=== PATIENT | male | born 1960 | race American Indian/Alaskan Native ===

== ENCOUNTER 2021-09-07 09:55 | Emergency (ER) | payer SELFPAY ==
[2021-09-07 10:03] VITALS: BP 187/89
--- NOTE | 2021-09-07 10:21 | Event Note ---
ED Screening Note Date of service: 09/07/21 Time: 10:19 ED Screening Note: This pleasant 61-year-old male with past medical history of end-stage renal failure on dialysis Mondays and in [place]. He reports he recently flew here from [place] and was sitting upright for approximately 13 hours and has noticed some swelling in both of his legs since. He reports he was dialyzed fully 4 days ago on 09/03 as scheduled. He has access for dialysis in the right side of his chest. He does still make urine daily. He denies any other symptoms such as fever, chills, night sweats, headache, dizziness, or vision, chest pain, shortness of breath, nausea, vomiting, diarrhea, focal weakness or any other associated symptoms. This initial assessment/diagnostic orders/clinical plan/treatment(s) is/are subject to change based on patients health status, clinical progression and re-assessment by fellow clinical providers in the ED. Further treatment and workup at subsequent clinical providers discretion. Patient/guardian urged not to elope from the ED as their condition may be serious if not clinically assessed and managed. Initial orders include: labs, ekg, chest x-ray
--- NOTE | 2021-09-07 10:37 | Emergency Department Report ---
ED General Adult HPI - General Chief complaint: Weakness Stated complaint: FEELING TIRED AND FAINT Time Seen by Provider: 09/07/21 10:20 Source: patient Mode of arrival: Ambulatory Limitations: No Limitations - History of Present Illness Initial comments: Patient presents due to generalized weakness. He states that his feet are swollen and he just does not feel right. This is been going on for months. He has been in [facility] for the last 1 to 2 months. That is where he resided. He was having kidney problems there he believes related to high blood pressure and was put on dialysis. He has been dialyzed for the last 1 to 2 months. He has had feet swelling. Last night and into today, he flew from [facility] to here. He got off the plane at the airport in [place] and came here for evaluation. He states that he was last dialyzed . He has no cough or congestion. He states that he just does not feel well. There is no vomiting or diarrhea. His feet are swollen and have been swollen. He does not have a physician here. He does not have any care arranged here. When asked about where he resides, he states that he is going to "be here a while." - Related Data Home Medications Medication Instructions Recorded Confirmed Last Taken Unobtainable 09/07/21 09/07/21 Unknown Allergies Allergy/AdvReac Type Severity Reaction Status Date / Time No Known Allergies Allergy Unverified 09/07/21 10:02 ED Review of Systems ROS: Stated complaint: FEELING TIRED AND FAINT Other details as noted in HPI Comment: All other systems reviewed and negative Constitutional: denies: fever Eyes: denies: vision change ENT: denies: throat pain Respiratory: denies: cough Cardiovascular: denies: chest pain Endocrine: denies: unexplained weight loss Gastrointestinal: denies: abdominal pain Genitourinary: as per HPI Musculoskeletal: denies: back pain Skin: denies: rash Neurological: denies: headache Hematological/Lymphatic: denies: easy bruising ED Past Medical Hx - Past Medical History Hx Hypertension: Yes Hx Renal Disease: Yes (On dialysis) - Family History Family history: hypertension - Medications Home Medications: Home Medications Medication Instructions Recorded Confirmed Last Taken Type Unobtainable 09/07/21 09/07/21 Unknown History ED Physical Exam - General Limitations: No Limitations, Other (Pulse ox noted and normal) General appearance: alert, in no apparent distress - Head Head exam: Present: atraumatic, normocephalic - Eye Eye exam: Present: normal appearance, EOMI. Absent: scleral icterus - ENT ENT exam: Present: normal external ear exam - Neck Neck exam: Present: normal inspection. Absent: meningismus - Respiratory Respiratory exam: Present: normal lung sounds bilaterally, other (Dialysis catheter in the right anterior chest). Absent: respiratory distress - Cardiovascular Cardiovascular Exam: Present: regular rate, normal rhythm - GI/Abdominal GI/Abdominal exam: Present: soft. Absent: distended - Extremities Exam Extremities exam: Present: normal capillary refill, pedal edema (4+ bilateral) - Back Exam Back exam: Absent: CVA tenderness (R), CVA tenderness (L) - Neurological Exam Neurological exam: Present: alert, oriented X3, CN II-XII intact. Absent: motor sensory deficit - Psychiatric Psychiatric exam: Present: normal affect, normal mood - Skin Skin exam: Present: warm, dry ED Course Vital Signs 09/07/21 10:02 Temperature 98.4 F Pulse Rate 81 Respiratory 18 Rate Blood Pressure 187/89 O2 Sat by Pulse 97 Oximetry - Reevaluation(s) Reevaluation #1: 09/07/21 10:36 IV and labs were ordered. EKG was ordered. Reevaluation #2: 09/07/21 11:37 Labs have been noted. Oral potassium and magnesium have been ordered. Patient does not require emergent dialysis. There is no evidence of pulmonary edema. He is not hypoxic. He is not hyperkalemic. Patient will be referred for o utpatient evaluation and follow-up. He was invited to return in case she runs into other problems. ED Medical Decision Making - Lab Data Result diagrams: 09/07/21 10:43 09/07/21 10:43 - EKG Data -: EKG Interpreted by Wi - Medical Decision Making Patient presents for checkup on his renal failure. He literally just got off of a plane from [facility] to be evaluated. He has chronic renal failure based on his history. We have no old records on this gentleman. He does not have hyperkalemia or evidence of volume overload from a pulmonary standpoint that w ould require admission. He does have dependent edema involving the feet and ankles. This can be managed as an outpatient. He has not had any evidence of dysrhythmia. Critical Care Time: No Critical care attestation.: If time is entered above; I have spent that time in minutes in the direct care of this critically ill patient, excluding procedure time. ED Disposition Clinical Impression: ESRD on dialysis, Chronic hypertension, Dependent edema, Hypokalemia, Hypomagnesemia Disposition: HOME / SELF CARE / HOMELESS Is pt being admited?: No Condition: Stable Instructions: Hypertension (ED), Hypomagnesemia, Edema, Hypokalemia, Dialysis Additional Instructions: Elevate the feet. By compressive stockings and wear them. Do not eat salt. Take your regular medication. Follow-up with the referral doctor as provided. Referrals: DARIUS PARR MD [Staff Physician] - 3-5 Days SHAD DESAI MD [Staff Physician] - 3-5 Days
[2021-09-07 11:02] LABS: Hemoglobin 9.4 gm/dl (11.8-15.2); Mean Corpuscular HGB Conc 34 % (32-34); Mean Corpuscular Volume 71 fl (84-94); Platelet Count 297 K/mm3 (140-440); Red Blood Count 3.92 M/mm3 (3.65-5.03)
--- NOTE | 2021-09-07 11:11 | XRay Report ---
CHEST 2 VIEWS INDICATION / CLINICAL INFORMATION: weakness, missed dialysis. COMPARISON: None available. FINDINGS: SUPPORT DEVICES: A right internal jugular vein PermCath is seen terminating over the distal SVC. The catheter is twisted at its expected insertion site just above the right clavicle. HEART / MEDIASTINUM: There is mild aortic atherosclerosis without other significant abnormalities. LUNGS / PLEURA: No significant pulmonary abnormality. No significant pleural effusion. No pneumothora x. ADDITIONAL FINDINGS: No significant additional findings. IMPRESSION: 1. No acute abnormality of the chest. 2. Additional findings as above. Signer Name: Rolf Alvarado MD Signed: 09/07/2021 11:07 AM Workstation Name: [id number]
[2021-09-07 11:29] LABS: Red Cell Distribution Width 34.5 % (13.2-15.2)
[2021-09-07] MEDS ORDERED: POTASSIUM CHLORIDE ER 20 MEQ TAB PO ONE (11:35)
[2021-09-07] MEDS ORDERED: MAGNESIUM OXIDE 400 MG TAB PO ONE (11:36)
[2021-09-07] MEDS ORDERED: amLODIPine 5 MG TAB PO ONE (14:20)
--- NOTE | 2021-09-08 10:04 | Electrocardiograph Report ---
[facility] Test Date: 2021-09-07 Test Time: 11:02:36 Pat Name: JASKARAN HARRINGTON Department: Room: Gender: M Ream Cutter: GRANT : 1960 Requested By: GRADY ZIMMERMAN Order Number: [id number] Reading MD: Balaji Medley Measurements Intervals [place] Rate: 65 P: 44 IA: 153 QRS: 28 QRSD: 97 T: 63 QT: 484 QTc: 505 Interpretive Statements Sinus rhythm Prolonged QT interval [id number] No previous ECG available for comparison Electronically Signed On 09-08-2021 10:04:14 EDT by Balaji Medley
== END 2021-09-07 12:15 | disposition home or self-care (01) ==
LOC: ED 09:55
DX: R53.1 Weakness (principal); I12.0 Hypertensive chronic kidney disease with stage 5 chronic kidney disease or end stage renal disease; N18.6 End stage renal disease; Z99.2 Dependence on renal dialysis; R60.9 Edema, unspecified; E87.6 Hypokalemia; E83.42 Hypomagnesemia; Z79.899 Other long term (current) drug therapy
CPT/HCPCS: 36415; 71046; 80048; 83735; 85025; 93005; 99284